=== PATIENT | male | born 1955 | race Caucasian/White ===

== ENCOUNTER 2016-05-04 14:18 | Emergency (ER) | payer MEDICAID, OTHER ==
[2016-05-04] MEDS ORDERED: LIDOCAINE 5% PATCH TOP ONE (15:18)
--- NOTE | 2016-05-04 15:23 | Emergency Department Record ---
History of Present Illness - General Chief complaint: Pain Stated complaint: RIB AND ARM PAIN Time Seen by Provider: 05/04/16 15:14 Source: Patient Mode of Arrival: Ambulatory Limitations: No limitations - History of Present Illness Initial comments: 60 yo male presents to ED with a CC of right sided rib pain following an injury to the area 6 days ago while trying to remove ice from the top of his swimming pool, backed into a metal spike resulting in injury. Patient reports that his pain symptoms have been getting worse. Patient denies fevers, chills, or cough symptoms, but does report pain with cough or touch to the right anterio-lateral chest wall. MD Complaint: Other Onset/Timin -: Days(s) Location: Right Radiation: Proximal Severity scale (1-10): 7 Quality: Sharp, Stabbing Consistency: Constant Improves with: Movement Worsens with: Palpation - Related Data Home Medications Medication Instructions Recorded Confirmed Last Taken Omeprazole [Prilosec] 20 mg PO DAILY 06/20/14 05/04/16 1 Day Ago Previous Rx's Medication Instructions Recorded Hydrocodone/Acetaminophen [Marcellus 1 tab PO Q6H PRN #15 tab 05/04/16 5mg/325mg] Lidocaine Patch [Lidoderm] 1 ea TOP Q12HR #20 patch 05/04/16 Allergies Allergy/AdvReac Type Severity Reaction Status Date / Time codeine AdvReac NAUSEA Verified 05/04/16 15:03 Travel Screening - Travel/Exposure Within Last 30 Days Have you traveled within the last 30 days?: No - Travel/Exposure Within Last Year Have you traveled outside the [place] in the last year?: No - Additonal Travel Details Have you been exposed to anyone with a communicable illness?: No - Travel Symptoms Symptom Screening: None Review of Systems Constitutional: Denies: Chills, Fever, Malaise, Night sweats Eyes: Denies: Eye discharge, Eye pain ENT: Denies: Congestion, Ear pain, Epistaxis Respiratory: Denies: Cough, Dyspnea Cardiovascular: Reports: Chest pain. Denies: Dyspnea on exertion, Edema, Palpitations, Paroxysmal nocturnal dyspnea Endocrine: Denies: Fatigue, Heat or cold intolerance Gastrointestinal: Denies: Abdominal pain, Nausea, Vomiting Genitourinary: Denies: Dysuria, Frequency, Hematuria, Incontinence, Retention Musculoskeletal: Denies: Arthralgia, Back pain, Gout, Joint swelling Skin: Denies: Bruising, Change in color, Change in hair/nails Neurological: Denies: Abnormal gait, Confusion, Headache, Seizure Psychiatric: Denies: Anxiety Hematological/Lymphatic: Denies: Anemia, Blood Clots Past Medical History - SOCIAL HISTORY Smoking Status: Current every day smoker Alcohol Use: Occassional Drug Use: None - RESPIRATORY Hx Respiratory Disorders: No - CARDIOVASCULAR Hx Cardio Disorders: No - NEURO Hx Neuro Disorders: No - GI Hx GI Disorders: No - Hx Genitourinary Disorders: No - ENDOCRINE Hx Endocrine Disorders: No - MUSCULOSKELETAL Hx Musculoskeletal Disorders: No - PSYCH Hx Psych Problems: No - HEMATOLOGY/ONCOLOGY Hx Hematology/Oncology Disorders: No Family Medical History Any Significant Family History?: Yes Hx Cancer: Father, Brother/Sister Physical Exam - General General Appearance: Alert, Oriented x3, Cooperative, Mild distress Limitations: No limitations - Head Head exam: Atraumatic, Normocephalic, Normal inspection Head exam detail: negative: Abrasion, Contusion, Tidwell's sign, General tenderness, Hematoma, Laceration - Eye Eye exam: Normal appearance. negative: Conjunctival injection, Periorbital swelling, Periorbital tenderness, Scleral icterus - ENT Ear exam: negative: Auricular hematoma, Auricular trauma Nasal Exam: negative: Active bleeding, Discharge, Dried blood, Foreign body Mouth exam: negative: Drooling, Laceration, Muffled voice, Tongue elevation - Neck Neck exam: Normal inspection. negative: Meningismus, Tenderness - Respiratory Respiratory exam: Normal lung sounds bilaterally, Chest wall tenderness. negative: Rales, Respiratory distress, Rhonchi, Stridor - Cardiovascular Cardiovascular Exam: Regular rate, Normal rhythm, Normal heart sounds - GI/Abdominal GI/Abdominal exam: Soft. negative: Rebound, Rigid, Tenderness - Rectal Rectal exam: Deferred - exam: Deferred - Extremities Extremities exam: Normal inspection. negative: Calf tenderness, Pedal edema, Tenderness - Back Back exam: Denies: CVA tenderness (R), CVA tenderness (L) - Neurological Neurological exam: Alert, Normal gait, Oriented X3 - Psychiatric Psychiatric exam: Normal affect, Normal mood - Skin Skin exam: Normal color. negative: Abrasion Type of lesion: negative: abrasion Course Vital Signs 05/04/16 14:59 Temperature 98.1 F Pulse Rate 57 L Respiratory 12 Rate Blood Pressure 142/79 Pulse Ox 95 - Reevaluation(s) Reevaluation #1: 05/04/16 16:35 CT Chest: 6 mm nodule RML, recommended follow-up, nothing acute. Patient was updated on CT imaging results, Lidoderm patch is in place and the patient reports improvement is his pain symptoms. Patient was counseled regarding the importance of CT follow-up to evaluate nodule in the RML in 4-6 months through his PCP. Patient verbalizes understanding of all instructions. Patient appears stable for discharge at this time. 05/04/16 16:44 Disposition Disposition: Discharge Clinical Impression: Chest wall injury Qualifiers: Encounter type: initial encounter Qualified Code(s): S29.9XXA - Unspecified injury of thorax, initial encounter Disposition: Home, Self-Care Condition: (2) Stable Instructions: Chest Wall Pain (ED) Additional Instructions: Return to ED if your symptoms worsen or if you have any concerns. Marcellus and Lidoderm patches as directed. Follow-up with your family doctor in 3-5 days as directed. Prescriptions: Lidocaine Patch [Lidoderm] 1 ea TOP Q12HR #20 patch Hydrocodone/Acetaminophen [Marcellus 5mg/325mg] 1 tab PO Q6H PRN #15 tab PRN Reason: Pain - General Forms: Patient Portal Access Time of Disposition: 16:38
== END 2016-05-04 16:46 | disposition home or self-care (01) ==
LOC: ER 14:18
DX: S29.9XXA Unspecified injury of thorax, initial encounter (principal); W22.8XXA Striking against or struck by other objects, initial encounter; R91.1 Solitary pulmonary nodule
CPT/HCPCS: 71250; 99283; 99284

== ENCOUNTER 2017-03-17 11:41 | Day surgery (SDC) | payer BC ==
[2017-03-17] MEDS ORDERED: PROPOFOL 10 MG/ML VIAL IV ONE (11:42)
[2017-03-17] MEDS ORDERED: MIDAZOLAM HCL 2MG/2ML VIAL IV ONE (11:42)
[2017-03-17] MEDS ORDERED: LIDOCAINE 2% MDV (20MG/ML) 20ML VIAL IV ONE (11:42)
--- NOTE | 2017-03-18 12:50 | Operative Note ---
DATE OF SURGERY: 03/17/2017 OPERATION: COLONOSCOPY to the cecum with electrocautery snare polypectomy, cold snare polypectomy, biopsy, endoclip placement. INDICATION: Prior history of adenomatous polyps. The patient's last examination was in 2008 completed by my associate who found adenomatous polyps. He was instructed to return in 3 years but presented today for surveillance. ANESTHESIA: Intravenous sedation was administered by the department of anesthesiology and included Diprivan titrated to effect. PROCEDURE: Following informed consent from this alert individual including a discussion of the risks and benefits of the procedure and an opportunity for the patient to ask questions, the patient was in the left lateral decubitus position. A digital rectal examination was performed. No abnormalities were noted. Following this, the Olympus [id number] video colonoscope was inserted into the rectum without resistance. The rectal mucosa itself had a normal appearance with normal folds and distensibility. The colonoscope was advanced up through the colon to the level of the cecum with some slight difficulty due to some redundancy of the colon. The cecal base was reached, however, and the appendiceal orifice was well visualized. The colon preparation was good with washing and suctioning employed vigorously to facilitate adequate visualization. In the cecum, there was an area of ulceration with edema and erythema circumferentially. This area was biopsied. A lipoma was also noted and at the level of the ileocecal valve, there was a large polyp measuring 1.2 to 1.4 cm in size which was removed with electrocautery snare polypectomy. A white eschar was noted. An Endoclip was placed for closure. Retroflexion in the cecum revealed the polypectomy site. No other changes were appreciated. From the base of the cecum, colonoscope was then slowly withdrawn. There was a second polyp noted in the proximal descending colon measuring 7 mm in size which was removed with cold snare polypectomy and suctioned through the endoscope into a collection trap. In the sigmoid colon, there was a 3rd polyp measuring 5-6 mm in size also removed with cold snare polypectomy. Retroflexion in the rectum revealed small internal hemorrhoids. Of note, the large polyp removed from the cecum was cut in smaller pieces with the snare and suctioned through the endoscope into a collection trap. No other changes were appreciated. The patient tolerated the procedure well and was returned to the recovery area in stable condition. IMPRESSION: 1. A 1.2 to 1.4 cm cecal polyp at the level of the ileocecal valve removed with electrocautery snare polypectomy. Endoclip was placed for closure. 2. A cecal area of ulceration with edema and erythema circumferentially. Biopsies taken. 3. 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 4. Proximal descending colon polyp measuring 6 mm in size removed with cold snare polypectomy. 5. Sigmoid polyp measuring 5-6 mm in size removed with cold snare polypectomy. 6. Internal hemorrhoids. RECOMMENDATIONS: Further recommendations forthcoming pending results of pathology obtained today. As always, thank you for allowing me to participate in the care of your patient. CC: Dr. Iman MARIE
== END 2017-03-17 13:00 | disposition home or self-care (01) ==
LOC: HOP 11:41
PROVIDERS: ATTEND Internal Medicine Gastroenterology
DX: Z86.010 Personal history of colon polyps (principal); D12.0 Benign neoplasm of cecum; D12.4 Benign neoplasm of descending colon; K63.5 Polyp of colon